=== PATIENT | male | born 1980 | race Caucasian/White ===

== ENCOUNTER 2021-05-18 17:00 | Emergency (ER) | payer BC, SELFPAY ==
--- NOTE | ~2021-05-18 | CT_ITS ---
EXAMINATION: CT abdomen pelvis w con DATE: 05/18/2021 18:24 INDICATION: Right upper quadrant abdominal pain. TECHNIQUE: Computed tomography (CT) of the abdomen and pelvis was performed with 100 mL Omnipaque 350 intravenous contrast. Automated exposure control and iterative reconstruction technique were employe d. The dose-length product was 1201.17 mGy-cm. COMPARISON: None. FINDINGS: The visualized portions of the lung bases are clear without pneumonia or pleural effusion. The heart size is normal. No pericardial effusion. The liver and spleen are normal. The gallbladder i s distended and contains gallstones. Gallbladder wall thickening is noted. There is fat stranding scott und the gallbladder. The pancreas, adrenal glands, and kidneys are normal. There are no dilated loops of bowel. The appendix is normal. The prostate is mildly enlarged. There are no pathologically enlar ged lymph nodes. There is no free intraperitoneal fluid. There is mild thoracolumbar spondylosis. The re is mild chronic anterior wedging of multiple vertebral bodies. IMPRESSION: 1. Acute cholecystitis. Reviewed, dictated and finalized at location E. IMPRESSION: 1. Acute cholecystitis.
[2021-05-18 17:03] VITALS: BP 187/92; PULSE 100; RESP 17; TEMP 36.5; O2SAT 100
--- NOTE | 2021-05-18 17:50 | ED.ABDPAIN ---
HPI - Abdominal Pain General Chief Complaint: Abdominal Pain Stated Complaint: abd pain Time Seen by Provider: 05/18/21 17:16 Source: patient Mode of arrival: ambulatory Limitations: no limitations History of Present Illness HPI narrative: This is a 40 year old male that presents to the ER for RUQ abdominal pain ongoing today. Reports a sharp pain in his RUQ that has been intermittent in nature. Reports the pain radiates into his lower abdomen. He is not having any pain currently. Reports he had a similar episode years ago. He was concerned that he might have had a gallbladder attack. Denies fever, vomiting, diarrhea, dysuria, or hematuria. Related Data Allergies Allergy/AdvReac Type Severity Reaction Status Date / Time azithromycin Allergy Hives Verified 05/18/21 17:02 Review of Systems Review of Systems: CONSTITUTIONAL: Denies fever CARDIOVASCULAR: Denies chest pain GASTROINTESTINAL: Reports abdominal pain. Denies nausea, vomiting, or diarrhea. GENITOURINARY: Denies dysuria or hematuria. All systems reviewed & are unremarkable except as noted in HPI and below PMFSH Past Medical History Medical History (Updated 05/18/21 @ 18:54 by Samantha Suresh PA-C) No active medical problems Social History Social History (Updated 05/18/21 @ 17:53 by Samantha Suresh PA-C) Smoking status: Never smoker Exam Narrative: GENERAL: Well-appearing, well-nourished, and in no acute distress. HEAD: Normocephalic, atraumatic. EYES: EOMI. CHEST: Clear to auscultation. No respiratory distress. No wheezes rales or rhonchi HEART: Regular rate and rhythm. No murmur heard. Normal peripheral pulses. ABDOMEN: Soft, nontender, nondistended, normal active bowel sounds. EXTREMITIES: Normal range of motion. No edema. SKIN: Warm, dry, no rash. NEURO: No focal deficits. Alert and oriented x3. PSYCH: Normal mood and affect Course Consultations Consultation #1: Spoke with Dr. Garza about patient and workup. Patient prefers following up outpatient. He will be started on a low fat diet, antibiotics and follow up in clinic. Given return precautions Date: 05/18/21 Time: 18:51 Vital Signs Vital signs: Vital Signs Temperature 97.7 F 05/18/21 17:03 Pulse Rate 100 05/18/21 17:03 Respiratory Rate 17 05/18/21 17:03 Blood Pressure 187/92 H 05/18/21 17:03 Pulse Oximetry 100 05/18/21 17:03 Temperature 97.7 F 05/18/21 17:03 Pulse Rate 100 05/18/21 17:03 Respiratory Rate 17 05/18/21 17:03 Blood Pressure 187/92 H 05/18/21 17:03 Pulse Oximetry 100 05/18/21 17:03 MDM - Abdominal Pain MDM Narrative Medical decision making narrative: Patient presents to the emergency department for right upper quadrant pain today. Had largely resolved upon arrival to the ED. His abdominal exam at this time is benign. He is afebrile and nontoxic-appearing. CBC with leukocytosis to 14.1. Metabolic panel without concerning findings. CT scan of the abdomen and pelvis shows acute cholecystitis. Spoke with Dr. Garza about patient and workup. Patient prefers following up outpatient. He will be started on a low fat diet, antibiotics and follow up in clinic. Given return precautions. Patient is stable and felt appropriate for further outpatient evaluation. He was given warnings to return to the ER Patient incidentally noted to be hypertensive in the ED. Instructed to continue to monitor this at home and follow-up with his primary doctor for this Lab Data Attestation: I reviewed the patient's lab results. Result diagrams: 05/18/21 17:51 05/18/21 17:51 Labs: Lab Results 05/18/21 05/18/21 Range/Units 17:51 17:51 WBC 14.1 H (4.5-10.0) K/mm3 RBC 4.20 L (4.6-6.20) M/mm3 Hgb 13.5 L (14.0-18.0) g/dL Hct 38.5 L (42.0-52.0) % MCV 91.7 (80-100) fl MCH 32.1 (26-34) pg MCHC 35.1 (32-36) g/dl RDW 11.8 (11.5-14.5) % Plt Count 197 (150-375) k/mm3 MPV 9.8 (7.4-10.4) fl Immature
[2021-05-18 17:58] LABS: Basophils Percent Auto 0.2 % (0.2-1.2); Eosinophils Percent Auto 0.1 % (0-4.4); Hematocrit 38.5 % (42.0-52.0); Hemoglobin 13.5 g/dL (14.0-18.0); Immature Granulocyte Absolute 0.06 K/mm3 (0.00-0.031); Immature Granulocyte Percent A 0.4 % (0-0.5); Lymphocytes Absolute Auto 1.82 K/mm3 (0.9-3.2); Lymphocytes Percent Auto 12.9 % (18.3-44.2); Mean Corpuscular HGB Conc 35.1 g/dl (32-36); Mean Corpuscular Hemoglobin 32.1 pg (26-34); Mean Corpuscular Volume 91.7 fl (80-100); Mean Platelet Volume 9.8 fl (7.4-10.4); Monocytes Percent Auto 6.9 % (2.6-8.5); Neutrophils Absolute Auto 11.2 K/mm3 (1.3-6.7); Neutrophils Percent Auto 79.5 % (45.5-73.1); Platelet Count Result 197 k/mm3 (150-375); Red Cell Distribution Width 11.8 % (11.5-14.5); White Blood Count 14.1 K/mm3 (4.5-10.0)
[2021-05-18 18:05] LABS: Alanine Aminotransferase 21 U/L (4-50); Albumin Level 4.4 g/dL (3.5-5.1); Alkaline Phosphatase 40 U/L (38-126); Anion Gap 9 mmol/L (8-16); Aspartate Amino Transferase 24 U/L (17-59); Bilirubin,Total 0.6 mg/dL (0.2-1.3); Blood Urea Nitrogen 8 mg/dL (9-20); Calcium 8.1 mg/dL (8.4-10.2); Carbon Dioxide 23 mmol/L (22-30); Chloride 99 mmol/L (98-107); Estimated CRCL calculation 136 ml/min; Estimated Glomerular Filt Rate > 60; Glucose 118 mg/dL (65-110); Lipase 34 U/L (23-300); Potassium 3.4 mmol/L (3.4-5.0); Sodium 131 mmol/L (137-145)
[2021-05-18 18:30] VITALS: BP 168/86; PULSE 88; RESP 16; O2SAT 97
== END 2021-05-18 19:10 | disposition home or self-care (01) ==
PROVIDERS: Emergency Provider Emergency Medicine
DX: K81.0 Acute cholecystitis (principal)
CPT/HCPCS: 36415; 74177; 80053; 83690; 85025; 99284; Q9967

== ENCOUNTER 2021-05-29 11:57 | Outpatient (CLI) | payer BC, SELFPAY ==
--- NOTE | 2021-05-29 15:10 | ECG_ITS ---
Measurements Intervals Miller Rate: 72 P: -2 MN: 163 QRS: -21 QRSD: 110 T: -4 QT: 385 QTc: 424 Interpretive Statements SINUS RHYTHM BORDERLINE LEFT AXIS DEVIATION [QRS AXIS < -20] VOLTAGE CRITERIA FOR LVH [MEETS CRITERIA IN ONE OF: R(aVL), S(V1), R(V5), R(V5/V6)+S(V1)] ABNORMAL ECG NO PREVIOUS ECG AVAILABLE FOR COMPARISON Electronically Signed On 05-29-2021 17:06:18 CDT by Basil Fulton M.D.
[2021-05-29 15:43] LABS: Amylase 57 U/L (30-110)
== END 2021-05-29 11:58 | disposition home or self-care (01) ==
PROVIDERS: Visit Provider Surgery
DX: Z01.818 Encounter for other preprocedural examination (principal); K81.0 Acute cholecystitis; I10 Essential (primary) hypertension
CPT/HCPCS: 36415; 82150; 86850; 86900; 86901; 93005

== ENCOUNTER 2021-06-04 00:28 | Day surgery (SDC) | payer BC, SELFPAY ==
[2021-05-29 10:36] VITALS: BMI 35.9
--- NOTE | 2021-05-29 10:46 | PC.NURSE ---
Report to the Outpatient Waiting Room, entrance under the green pavilion located off [facility], at time 10:00 on date 06/04/21. OR Time: 12:00. - You and your visitor will be asked a series of questions to screen for COVID 19 for your protection. - A mask is required within the hospital. One visitor will be allowed to accompany the patient into the hospital. Patients visitor will be instructed to remain with patient at all times or leave the building. We will allow the visitor to come back to the postoperative area when patient is ready. Preoperative COVID Testing Requirements: No COVID Test needed if: (proof is required; if not received patient will have Rapid Test prior to entry) - Patient has received COVID Vaccine at least 14 days prior to procedure date or - Patient has positive COVID test result within last 90 days of surgery date. COVID Test needed if above criteria is not met Patients may have clear liquids (water, carbonated beverages, clear teas, apple juice) until 3 hours prior to surgery (9:00) with a maximum of 20 ounces. - No food from midnight until time of surgery Take the following medications with a SIP of water the morning of surgery: NONE Medications to discontinue per physician: N/A Date to take last dose: N/A Please no make-up, nail malaysian, hairspray, perfume, deodorant, or body powder the day of surgery. No jewelry (including any body piercings) or valuables the day of surgery, leave them at home. Please take a shower or bath the night before, or the morning of, surgery with an antibacterial soap. Wear comfortable, loose fitting clothing. HIBICLENS SHOWER - Jewelry must be removed prior to entering the operating room. Rings and piercings that are not removed may be cut off. - The hospital will not accept responsibility for valuables. - Please leave all valuables, including medications, at home the day of surgery. If you are going home after surgery, a licensed spotter driver must drive you home. - NO public transportation without another adult. - We recommend that an adult stay with you for 24 hours following discharge. - We also recommend that you do not drive, make important decision, drink alcoholic beverages, or take any drugs that were not prescribed by your health care provider for at least 24 hours after your discharge time. Follow any additional instructions given to you from your surgeon. Telephone instructions given to ARMINDA WINCHESTER and asked if any additional questions and then verbalized understanding. Patient advised to call surgeon office or pre surgery nurse liaison [phone] if any additional questions.
[2021-06-04] VITALS (7 sets, daily range): BP systolic 121–158; BP diastolic 69–85; PULSE 59–85; RESP 12–20; TEMP 36.2–36.6; O2SAT 100
[2021-06-04] MEDS: ACETAMINOPHEN 500 MG TABLET 1000 MG PO (10:02)
--- NOTE | 2021-06-04 10:04 | P.PNAN_ITS ---
Anes - Initial Pre Proc Eval Procedure: Operation Date: 06/04/21 10:30 Proposed Procedures p Laparoscopic Cholecystectomy - Pricilla Garza MD Date/Time: 06/04/21 10:04 Surgeon: Pricilla Garza MD Pre Op Diagnosis: acute cholecystitis Patient Data Age: 40 Gender: M Height: 1.78 m Weight: 113.4 kg Allergies Allergy/AdvReac Type Severity Reaction Status Date / Time amoxicillin Allergy Hives Verified 06/04/21 10:00 azithromycin Allergy Hives Verified 06/04/21 10:00 Penicillins AdvReac Intermediate rash Verified 06/04/21 10:00 Home Medications Medication Instructions Recorded Confirmed Type lisinopril 10 mg tablet 10 mg PO DAILY 05/21/21 06/04/21 History Patient hx anesthesia problems: none Family hx anesthesia problems: none Results Review: All pre-operative results and documents have been reviewed as part of the pre-operative evaluation. [facility] Past Medical History Medical History (Updated 05/21/21 @ 09:57 by Yuki Grimm SIGN PAINTER APPRENTICE) Hypertension Surgical History Surgical History (Updated 05/21/21 @ 09:50 by Ray Lundy MA) No history of previous surgery Family History Family History (Updated 05/21/21 @ 09:52 by Ray Lundy MA) Father Low left ventricular ejection fraction Mother Hypertension Sibling Hypertension Other Heart disease Social History Social History (Updated 05/21/21 @ 09:52 by Ray Lundy MA) Smoking status: Never smoker Alcohol intake: current Alcohol use details: NOTHING IN LAST 2 WEEKS Substance use: never Substance use type: does not use Living arrangements: with family 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 Informed Consent: The patient's anesthetic plan and its attendant risks and benefits were discussed with the patient/family/POA. Questions were solicited and answers provided to the satisfaction of the patient/family/POA.
--- NOTE | 2021-06-04 10:21 | WPDHPUPDATE1 ---
History and Physical Update Update Date/Time: 06/04/21 10:21 History and Physical has been reviewed, including an updated exam of the patient. There are NO changes in the patient's condition. Risks, benefits, and alternatives have been discussed and questions answered. Patient agrees to proceed with procedure.
[2021-06-04] MEDS: LACTATED RINGERS 1,000 ML 30 ML IV CONT ×2 (10:44→12:05)
[2021-06-04] MEDS: KETOROLAC 15 MG/ML VIAL (*BKC) IV PUSH (10:44)
[2021-06-04] MEDS: ceFAZolin 2 GM/D5W 50 ML 2 GM/50 ML BAG IVPB (10:50)
--- NOTE | 2021-06-04 12:15 | W.PM.PROC2 ---
Procedure Note - Detailed Date of Procedure 06/04/21 Pre-op Diagnosis acute cholecystitis, cholelithiasis Post-op Diagnosis Same Procedure Performed Laparoscopic cholecystectomy Surgeon Pricilla Garza MD Anesthesia General Indications 40 y/o M with history and imaging consistent with acute cholecystitis, cholelithiasis Findings acute cholecystitis with cholelithiasis Description of Procedure The patient was taken to the operating room placed in the supine position. After adequate induction of general anesthesia, the patient was prepped and draped in normal sterile fashion. A time-out was then performed to verify the patient's identity as well as the procedure being performed. I then made a 5 mm incision in the infraumbilical region. Through this, a Veress needle was placed into the peritoneal cavity and CO2 gas was then insufflated. After adequate pneumoperitoneum was achieved, the Veress needle was removed and a 5 mm optiview trocar was placed through this incision under direct visualization. I then placed the laparoscope through this trocar site and under direct visualization placed a further 12 mm subxiphoid port as well as 2 additional 5 mm ports in the right upper abdomen. The gallbladder was then identified and was noted to be very inflamed, distended, and full of gallstones. Given these findings, I used an ovarian needle to decompress the gallbladder. I was then able to place a grasper at the dome of the gallbladder and this was retracted anterior and cephalad up over the liver. A 2nd retractor was then placed at the infundibulum and retracted laterally, this allowed visualization of the triangle of Calot. There was noted to be an impacted gallstone at the neck of the gallbladder with surrounding inflammation. Using very careful dissection, I was able to clearly visualize all elements of the triangle of Calot. I then was able to visualize the cystic duct in its entirety from its proximal insertion into the gallbladder, to its distal junction with the common hepatic/common bile duct junction. At this point, I carefully skeletonized the proximal cystic duct with the [place] dissector. I then clipped and transected the proximal cystic duct. Next I visualized the cystic artery. Again the artery was skeletonized, clipped, and transected. I then used the Bovie cautery to take down the peritoneal attachments of the gallbladder off the liver bed. This was somewhat difficult given the amount of inflammation in the posterior space. Once the gallbladder specimen was completely detached, an endo-pouch was placed through the 12 mm port site. I then placed the gallbladder specimen into the Endo pouch and removed the endo-pouch from the 12 mm port site. The specimen will now be sent to pathology for further review. I then copiously irrigated the right upper quadrant. Some mild oozing was noted in the liver bed and this was controlled with the bovie cautery. I then placed some hemostatic powder in the liver bed. Hemostasis was noted in the liver bed, the clips were noted to be in good position on both the cystic duct stump and the cystic artery stump. No other pathology was noted in the right upper quadrant. I then moved the laparoscope to the subxiphoid port. No iatrogenic injury or other pathology was noted in the lower abdomen. I then closed the 12 mm trocar site under direct visualization using the Oneil cone and 0 Vicryl suture. At this point, the abdomen was desufflated and all ports removed. All port sites were then closed with 4.O Monocryl subcuticular sutures. Dermabond was placed on each incision. The patient tolerated the procedure well, was extubated in the operating room postoperative and will be transferred to the recovery room in stable condition Estimated Blood Loss 50 Drains No Packing No Pathology Yes Complications No immediate complications Condition Stable Disposition PACU
== END 2021-06-04 13:47 | disposition home or self-care (01) ==
PROVIDERS: Visit Provider Surgery
PROC: 0FT44ZZ Resection of Gallbladder, Percutaneous Endoscopic Approach (ICD-10-PCS; CPT 47562; principal; 2021-06-04 10:30)
DX: K80.12 Calculus of gallbladder with acute and chronic cholecystitis without obstruction (principal); I10 Essential (primary) hypertension; E66.9 Obesity, unspecified; Z68.35 Body mass index [BMI] 35.0-35.9, adult
CPT/HCPCS: 47562; 88304; A9270; J0690; J1170; J1885; J2250; J2405; J2704; J3010; J7030; J7120

== ENCOUNTER → 2023-01-06 13:07 | Outpatient (CLI) | payer BC, SELFPAY ==
--- NOTE | ~2023-01-06 | XR_ITS ---
XR shoulder LT min 2V 01/06/2023 13:20 Indication: Left shoulder pain Procedure: 4 views left shoulder Comparison: No prior studies for comparison. Findings: No fracture, subluxation or dislocation. There is anatomic alignment. Normal mineralization . No soft tissue abnormality. No foreign bodies. Impression: 1: No significant bone or joint abnormality. Reviewed, dictated and finalized at location B. ER JOINTER RETURNER Impression: 1: No significant bone or joint abnormality.
== END ==
PROVIDERS: PCP Emergency Medicine; Visit Provider Emergency Medicine
DX: M25.512 Pain in left shoulder (principal)
CPT/HCPCS: 73030